=== PATIENT | male | born 1960 | race Native Hawaiian/Other Pacific Islander ===

== ENCOUNTER 2019-06-29 12:06 | Emergency (ER) | payer OTHER ==
[~2019-06-29] VITALS: Ht 182.9 cm; Wt 81.6 kg
[2019-06-29 13:50] VITALS: BP 90/72; TEMP 98
== END 2019-06-29 14:02 | disposition home or self-care (01) ==
LOC: ED 12:06
PROC: 2W3KX1Z Immobilization of Left Finger using Splint (ICD-10-PCS; principal; 2019-06-29)
DX: S62.647A Nondisplaced fracture of proximal phalanx of left little finger, initial encounter for closed fracture (principal); W22.8XXA Striking against or struck by other objects, initial encounter; Y92.89 Other specified places as the place of occurrence of the external cause
CPT/HCPCS: 99283